=== PATIENT | female | born 1960 | race Caucasian/White ===

== ENCOUNTER → 2023-12-04 12:39 | Outpatient (REF) | payer BC, SELFPAY | LOC: RCS 12:39 | PROVIDERS: ATTENDING PHYSICIAN Nurse Practitioner Family | DX: R00.2 Palpitations (principal) | CPT/HCPCS: 93225; 93226 ==

== ENCOUNTER → 2024-04-22 09:54 | Outpatient (REF) | payer BC, SELFPAY | LOC: HWRAD 09:54 | PROVIDERS: ATTENDING PHYSICIAN Nurse Practitioner | DX: S39.92XA Unspecified injury of lower back, initial encounter (principal) | CPT/HCPCS: 72110 ==

== ENCOUNTER → 2024-05-08 19:11 | Outpatient (REF) | payer BC, SELFPAY | LOC: MRI 3T 19:11 | PROVIDERS: ATTENDING PHYSICIAN Nurse Practitioner Family | DX: R41.82 Altered mental status, unspecified (principal) | CPT/HCPCS: 70553; A9575 ==

== ENCOUNTER → 2024-09-26 06:37 | Outpatient (REF) | payer BC, SELFPAY ==
[2024-09-26 09:39] LABS: % Basophils 1.1 % (0-2); % Eosinophils 1.8 % (0-6); % Immature Granulocytes 0.2 % (0-0.5); % Lymphocytes 48.7 % (20.5-51.1); % Monocytes 8.7 % (1.7-9.3); % Neutrophils 39.5 % (42.2-75.2); Absolute Basophils 0.1 10^3/uL (0-0.2); Absolute Eosinophils 0.1 10^3/uL (0-0.7); Absolute Monocytes 0.5 10^3/uL (0.1-0.6); Absolute Neutrophils 2.4 10^3/uL (1.4-6.5); Hematocrit 39.3 % (37.0-47.0); Hemoglobin 13.5 g/dL (12.0-16.0); Mean Corp Hgb Conc. 34.4 g/dL (33.0-37.0); Mean Corpuscular Hgb 33.3 pg (27.0-31.0); Mean Platelet Volume 9.7 fL (7.4-10.4); Nucleated Red Blood Cells % 0 %; Platelet Count 223 10^3/uL (130-400); Red Blood Cell Count 4.05 10^6/uL (4.20-5.40); Red Cell Dist. Width 11.9 % (11.5-14.5); White Blood Cell Count 6.2 10^3/uL (4.8-10.8)
[2024-09-26 09:54] LABS: ALT (SGPT) 25 U/L (0-35); AST (SGOT) 24 U/L (14-36); Albumin 4.1 g/dl (3.5-5.0); Alkaline Phosphatase 52 U/L (38-126); Blood Urea Nitrogen 13 mg/dl (7-17); Carbon Dioxide 28 mmol/L (22-30); Chloride 101 mmol/L (98-107); Glucose 97 mg/dl (70-99); HDL Cholesterol 101 mg/dl; LDL Cholesterol, Calculated 107 mg/dl; Potassium 3.4 mmol/L (3.5-5.1); Sodium 137 mmol/L (135-145); Total Bilirubin 0.7 mg/dl (0.2-1.3); Total Cholesterol 223 mg/dl (50-199); Total Protein 6.5 g/dl (6.3-8.2); Triglyceride 79 mg/dl (10-149); Very Low Density Lipoprotein 15 mg/dl (0-30); eGFR > 60.00
[2024-09-26 10:44] LABS: Prolactin 18.7 ng/ml (3.0-18.6); Vitamin D, 25-OH*** 24.6 ng/mL (30-80)
[2024-09-26 10:58] LABS: TSH Reflex To Free T4 2.06 uIU/ml (0.47-4.68)
== END ==
LOC: HWLAB 06:37
PROVIDERS: ATTENDING PHYSICIAN Nurse Practitioner Family
DX: D35.2 Benign neoplasm of pituitary gland (principal)
CPT/HCPCS: 36415; 80053; 80061; 82306; 84146; 84443; 85025

== ENCOUNTER → 2024-10-27 14:35 | Outpatient (REF) | payer BC, SELFPAY | LOC: HWWDC 14:35 | PROVIDERS: ATTENDING PHYSICIAN Nurse Practitioner Family | DX: Z12.31 Encounter for screening mammogram for malignant neoplasm of breast (principal) | CPT/HCPCS: 77063; 77067 ==